=== PATIENT | female | born 1970 | race Caucasian/White ===

== ENCOUNTER 2019-11-02 05:50 | Day surgery (SDC) | payer OTHER ==
[~2019-11-02] VITALS: Ht 154.9 cm; Wt 60.0 kg
[~2019-11-02 05:50] MED LIST: SODIUM CHLORIDE 0.9% 1,000 ML ONE
[2019-11-02] MEDS ORDERED: SODIUM CHLORIDE 0.9% 1,000 ML IV ONE (06:30)
[2019-11-02] MEDS ORDERED: MULT-660 PO (07:12)
[2019-11-02] MEDS ORDERED: QUET200T PO (07:12)
[2019-11-02] MEDS ORDERED: QUET100T33 PO (07:12)
[2019-11-02] MEDS ORDERED: OMEP20 PO (07:12)
[2019-11-02] MEDS ORDERED: FLUT16H OU (07:12)
[2019-11-02] MEDS ORDERED: GABA600T10 PO (07:12)
[2019-11-02] MEDS ORDERED: FLUO-191 PO (07:12)
[2019-11-02] MEDS ORDERED: LORA10TA7 PO (07:12)
[2019-11-02] MEDS ORDERED: THIA100T67 PO (07:12)
[2019-11-02] MEDS ORDERED: ATOR20TA86 PO (07:12)
[2019-11-02] MEDS ORDERED: FERR-89 PO (07:12)
[2019-11-02] MEDS ORDERED: ASPI-1111 PO (07:12)
[2019-11-02] MEDS ORDERED: FOLI-130 PO (07:12)
[2019-11-02] MEDS ORDERED: ACET-66 PO (07:12)
[2019-11-02] MEDS ORDERED: CARV6 PO (07:12)
[2019-11-02] MEDS ORDERED: MIDAZOLAM HCL 2 MG/2 ML VIAL ONE (08:35)
[2019-11-02] MEDS ORDERED: FentaNYL CITRATE-PF 100 MCG/2 ML VIAL ONE (08:36)
[2019-11-02] MEDS ORDERED: MethylPREDNISolone SOD SUCC 125 MG/2 ML VIAL ONE (08:48)
[2019-11-02] MEDS ORDERED: MethylPREDNISolone SOD SUCC 125 MG/2 ML VIAL IVP ONE (09:30)
[2019-11-02] MEDS ORDERED: LIDOCAINE 4% 50 ML SOLUTION TP ONE (16:39)
[2019-11-02] MEDS ORDERED: BENZOCAINE 20% 50 MCG/SPRAY 57 GM TP ONE (16:39)
[2019-11-02] MEDS ORDERED: LIDOCAINE 2% 30 ML JELLY TP ONE (16:39)
[2019-11-02] MEDS ORDERED: ALBUTEROL SULFATE 2.5 MG/0.5 ML NEB SOLUTION NEB ONE (16:39)
[2019-11-02] MEDS ORDERED: OXYGEN THERAPY IH SCH (20:00)
== END 2019-11-02 11:00 | disposition home or self-care (01) ==
LOC: SURGERY 05:50
PROVIDERS: ATTEND Internal Medicine Critical Care Medicine
DX: R05 Cough (principal); R91.1 Solitary pulmonary nodule; J34.89 Other specified disorders of nose and nasal sinuses; J98.8 Other specified respiratory disorders; J38.4 Edema of larynx; E78.00 Pure hypercholesterolemia, unspecified; I10 Essential (primary) hypertension; D64.9 Anemia, unspecified; F41.9 Anxiety disorder, unspecified; F32.9 Major depressive disorder, single episode, unspecified; Z86.19 Personal history of other infectious and parasitic diseases; Z87.01 Personal history of pneumonia (recurrent); Z79.899 Other long term (current) drug therapy; Z11.59 Encounter for screening for other viral diseases
CPT/HCPCS: 31623; 31624; 71045; 87015; 87070; 87101; 87205; 87206; 87220; 87635; 88112; 88312; 93005; J2250; J2930; J3010; J7030